=== PATIENT | male | born 1950 | race Caucasian/White ===

== ENCOUNTER → 2024-01-31 12:42 | Outpatient (REF) | payer MEDICARE, SELFPAY ==
--- NOTE | 2024-01-31 14:32 | CARDSERVLU ---
Echocardiogram with Lumason completed after protocol screening completed. Allergies verified.
Patent IV site: _rt wrist___
IV site flushed with 0.9% NaCl pre and post administration.
Diluted bolus method utilized to enhance visualization of ventricular wagoner.
Total volume given: _4.0___ mL
Patient tolerated all procedures well without complications.
#22 started by IV team. Lumason given and INT d/c'd. dsg applied and pressure held.
== END ==
LOC: RCS 12:42
PROVIDERS: ATTENDING PHYSICIAN Internal Medicine Cardiovascular Disease; FAMILY PHYSICIAN Internal Medicine
DX: I50.20 Unspecified systolic (congestive) heart failure (principal); I48.91 Unspecified atrial fibrillation
CPT/HCPCS: 93306; Q9950

== ENCOUNTER 2024-04-03 08:29 | Day surgery (SDC) | payer MEDICARE, SELFPAY ==
[2024-03-15 12:56] VITALS: BMI 37.7
[2024-03-15 14:02] LABS: % Basophils 1.1 % (0-2); % Immature Granulocytes 0.4 % (0-0.5); % Lymphocytes 17.7 % (20.5-51.1); % Monocytes 8.6 % (1.7-9.3); % Neutrophils 67.2 % (42.2-75.2); Absolute Basophils 0.1 10^3/uL (0-0.2); Absolute Eosinophils 0.4 10^3/uL (0-0.7); Absolute Lymphocytes 1.3 10^3/uL (1.2-3.4); Absolute Monocytes 0.6 10^3/uL (0.1-0.6); Absolute Neutrophils 4.8 10^3/uL (1.4-6.5); Hematocrit 42.2 % (39.0-52.0); Hemoglobin 14.3 g/dL (13.0-18.0); Mean Corp Hgb Conc. 33.9 g/dL (33.0-37.0); Mean Corpuscular Hgb 31.5 pg (27.0-31.0); Mean Platelet Volume 11.5 fL (7.4-10.4); Nucleated Red Blood Cells % 0 % (-); Platelet Count 195 10^3/uL (130-400); Red Blood Cell Count 4.54 10^6/uL (4.70-6.10); Red Cell Dist. Width 13.8 % (11.5-14.5); White Blood Cell Count 7.2 10^3/uL (4.8-10.8)
[2024-03-15 14:13] LABS: INR 1.57; PT 18.9 Sec (11.4-14.6)
[2024-03-15 14:15] LABS: ALT (SGPT) 31 U/L (0-50); AST (SGOT) 36 U/L (17-59); Albumin 4.3 g/dl (3.5-5.0); Alkaline Phosphatase 90 U/L (38-126); Blood Urea Nitrogen 18 mg/dl (9-20); Calcium 9.8 mg/dl (8.4-10.2); Carbon Dioxide 28 mmol/L (22-30); Chloride 103 mmol/L (98-107); Estimated Creatinine Clearance 96 ml/min; Glucose 93 mg/dl (70-99); Magnesium 1.8 mg/dl (1.6-2.3); Potassium 4.7 mmol/L (3.5-5.1); Sodium 136 mmol/L (135-145); Total Protein 6.8 g/dl (6.3-8.2); eGFR > 60.00
[2024-04-03] VITALS (12 sets, daily range): BP systolic 140–156; BP diastolic 60–85; BMI 35.9
--- NOTE | 2024-04-03 10:01 | ITS.CL.ABL ---
[employer] Work[employer] - Ablation
Ablation
Procedure Report:
ELECTROPHYSIOLOGIC STUDY AND POSSIBLE ABLATION
DATE: April 03, 2024
Primary Care Provider: Dr. Antione Hernandez
Primary Rotary Drier Operator: Dr Sherice Vázquez
INDICATION:
Symptomatic Atrial Fibrillation.
Paroxysmal
HISTORY: See H and P.
Symptomatic AF, poorly controlled with attempted medical therapy
He has undergone prior ablation in [place] in 2021, cryoballoon ablation. With recurrences of atrial fibrillation he is symptomatic and he has logged heart rates of 130 to 140 bpm on his Apple watch
He has a history of atrial fibrillation mediated cardiomyopathy and previously with severely reduced left ventricular ejection fraction of 20 to 25% which since has improved with attempts at rhythm control.
HAS-BLED: 1
Age
CHADSVASc: 3
CHF, NYHA Class II, HFimpEF
HTN
Age
PRESENTING RHYTHM: SR
HISTORY: See H and P.
Symptomatic AF, poorly controlled with attempted medical therapy.
ANTICOAGULATION: rivaroxaban
'TIME-OUT': called and confirmed.
SEDATION/ANESTHESIA: provided via the anesthesia department using general anesthesia.
PROCEDURE:
Ultrasound Guidance performed by ak was utilized for femoral venous Vascular Access b/l.
A decapolar CS catheter was placed within the CS for mapping and pacing.
The intracardiac ultrasound catheter was positioned in the RA for continuous intracardiac ultrasound imaging.
Heparin bolus and infusion to target ACT at 300 -350 seconds was administered. Transseptal puncture was performed. This entailed advancing a sheath with dilator into the superior vena cava and withdrawing both (monitoring intracardiac ultrasound,
fluoroscopy and tip pressure) with the tip oriented toward the atrial septum. The fossa ovalis was engaged (indicated by sudden displacement of the sheath tip as well as tenting of the fossa seen on intracardiac ultrasound).
AcRAP Index transseptal system was used. Left atrial catheter position was confirmed by echocardiographic imaging, pressure monitoring (LA mean pressure 10 mm Hg) and fluoroscopy. The sheath was advanced over the dilator and positioned in the left
atrium.
The multipolar mapping catheter was initially positioned through the transseptal sheath for high density mapping.
Geometry and voltage mapping was performed using the Bui multipolar grid catheter. Navex was utilized for three-dimensional electroanatomical mapping.
A 3-D map was created using Navex. A 3-D reconstructed CT image was compared to the 3-D Navex map to assist in anatomic evaluation, mapping and ablation.
His previous ablation was in [place] in 2021. I did not electroanatomical mapping now finds there is electrical isolation of the left inferior pulmonary vein but the left superior, right superior and right inferior pulmonary veins demonstrate
reconnection. The left superior pulmonary vein is reconnected at its anterior superior quadrant. The right sided veins are circumferentially reconnected.
The [employer] Pulse EmergenSee PFA catheter and system was used for cardiac ablation. Catheter positioning was guided and confirmed using both I.C.E. and fluoroscopy.
PV isolation approach was used to electrically isolate each PV ostia. Given recurrence after initial ablation additional ablation lesion set was performed, isolating the posterior wall of the left atrium with pulsed electric field energy. At the
end of ablation, remapping with the Bui multipolar grid catheter found that all PVPs were eliminated at each vein demonstrating entrance block. Also pacing from the multipolar mapping catheter around the the circumference of the ostia was
performed at 10 ma and 2.0 msec output to assess for exit block. This demonstrated electrical isolation at each of the pulmonary vein ostia, LSPV, LIPV, RSPV, RIPV. Furthermore there is not only wide area circumferential ablation but isolation of
the posterior wall of the left atrium with entrance and exit block.
Programmed electrical stimulation was performed and failed to induce any sustained arrhythmias.
I.C.E. :
Pre-Ablation Post-Ablation
LVEF: 55% 55%
WMA: None none
Pericardial effusion: Trace around the RV small around the LV Trace around the RV small around the LV (unchanged)
COMPLICATIONS:
None
SUMMARY:
- Mapping and ablation to isolate the PVs
- Additional AF ablation set after PVI.
- 3-D Electroanatomical Mapping
- Intracardiac Ultrasound
Post ablation, I discussed today's findings and results with the patient's [ ].
RECOMMENDATIONS:
- Observe in monitored bed.
- Maintain oral anticoagulation.
- Continue [ ]
- Office visit with me in 3 months.
- Continue cardiovascular care with [ ]
Copy to:
Dr. Antione Hernandez
Dr Sherice Vázquez
[2024-04-03 11:07] LABS: ACT-LR - POC 308 Seconds (116-155)
[2024-04-03 11:28] LABS: ACT-LR - POC 290 Seconds (116-155)
[2024-04-03] MEDS: ANESTHETIC LOZENGE 1 LOZENGE PO (15:46)
--- NOTE | 2024-04-03 16:24 | W.PN.UPDATE ---
Update Note
Progress Note Update
PT seen post PFA. Right groin site with small HT noted laterally to stick site, no bleeding but tender to palpation. Site held with manual compression with some relief of swelling. Dressing CDI. Bedrest for an additional 1 hour. OOB now and
ambulating without pain or difficulty. Post EKG NSR w/occasional PVC, 60s, no acute changes. Resume xarelto tonight, continue other meds as before. Followup at [facility] as scheduled. Home today if groin site/tele remains stable.
== END 2024-04-03 16:12 | disposition home or self-care (01) ==
LOC: CATH 08:29
PROVIDERS: ATTENDING PHYSICIAN Internal Medicine Cardiovascular Disease; FAMILY PHYSICIAN Internal Medicine; OTHER PHYSICIAN Internal Medicine Cardiovascular Disease
DX: I48.91 Unspecified atrial fibrillation (principal); I11.0 Hypertensive heart disease with heart failure; I50.32 Chronic diastolic (congestive) heart failure; E78.5 Hyperlipidemia, unspecified; I42.8 Other cardiomyopathies; Z90.79 Acquired absence of other genital organ(s); K21.9 Gastro-esophageal reflux disease without esophagitis; Z79.01 Long term (current) use of anticoagulants; Z79.899 Other long term (current) drug therapy; Z85.46 Personal history of malignant neoplasm of prostate; H40.9 Unspecified glaucoma; Z85.820 Personal history of malignant melanoma of skin; R42 Dizziness and giddiness; K66.0 Peritoneal adhesions (postprocedural) (postinfection)
CPT/HCPCS: C1732; C1894; C1733; C1769; C1730; C1892; 36415; 75572; 76937; 80053; 83735; 85025; 85347; 85610; 86850; 86900; 86901; 93005; 93656; 93657; C1760; Q9967

== ENCOUNTER → 2025-01-18 12:35 | Outpatient (REF) | payer MEDICARE, SELFPAY ==
--- NOTE | 2025-01-18 13:50 | CARDSERVLU ---
Echocardiogram with Lumason completed after protocol screening completed. Allergies verified.
Patent IV site: 22 g angio inserted in RFA without incident - 1st attempt
IV site flushed with 0.9% NaCl pre and post administration.
Diluted bolus method utilized to enhance visualization of ventricular wagoner.
Total volume given: 3 mL
Patient tolerated all procedures well without complications.
IV d/c'd and bandage applied after pressure held.
== END ==
LOC: RCS 12:35
PROVIDERS: ATTENDING PHYSICIAN Internal Medicine Cardiovascular Disease; FAMILY PHYSICIAN Internal Medicine
DX: I50.32 Chronic diastolic (congestive) heart failure (principal); R06.09 Other forms of dyspnea
CPT/HCPCS: 93306; Q9950

== ENCOUNTER → 2025-04-03 09:13 | Outpatient (REF) | payer MEDICARE, SELFPAY ==
[2025-04-03 10:22] LABS: Hematocrit 40.8 % (39.0-52.0); Hemoglobin 13.4 g/dL (13.0-18.0); Mean Corp Hgb Conc. 32.8 g/dL (33.0-37.0); Mean Corpuscular Volume 90.9 fL (80.0-94.0); Nucleated Red Blood Cells % 0 % (-); Platelet Count 225 10^3/uL (130-400); Red Cell Dist. Width 12.9 % (11.5-14.5)
[2025-04-03 10:28] LABS: ALT (SGPT) 30 U/L (0-50); AST (SGOT) 33 U/L (17-59); Albumin 4.2 g/dl (3.5-5.0); Alkaline Phosphatase 76 U/L (38-126); Blood Urea Nitrogen 21 mg/dl (9-20); Calcium 9.6 mg/dl (8.4-10.2); Carbon Dioxide 24 mmol/L (22-30); Chloride 106 mmol/L (98-107); Glucose 94 mg/dl (70-99); Magnesium 1.9 mg/dl (1.6-2.3); Potassium 4.5 mmol/L (3.5-5.1); Sodium 139 mmol/L (135-145); Total Protein 7.1 g/dl (6.3-8.2); Uric Acid 5.9 mg/dl (3.5-8.5); eGFR > 60.00
[2025-04-03 10:56] LABS: TSH 1.54 uIU/ml (0.47-4.68)
[2025-04-03 12:01] LABS: Glycohemoglobin (HgbA1c) 5.5 % (4.0-5.6)
== END ==
LOC: REG 09:13
PROVIDERS: ATTENDING PHYSICIAN Nurse Practitioner Family; FAMILY PHYSICIAN Internal Medicine
DX: I50.30 Unspecified diastolic (congestive) heart failure (principal); I48.0 Paroxysmal atrial fibrillation; I10 Essential (primary) hypertension; I42.8 Other cardiomyopathies; I25.10 Atherosclerotic heart disease of native coronary artery without angina pectoris; E78.49 Other hyperlipidemia; Z13.1 Encounter for screening for diabetes mellitus; R63.5 Abnormal weight gain
CPT/HCPCS: 36415; 80053; 80061; 83036; 83704; 83735; 84439; 84443; 84550; 85025